=== PATIENT | male | born 1940 | race Caucasian/White ===

== ENCOUNTER 2018-02-09 11:16 | Outpatient (CLI) | payer MEDICARE, BC ==
[2018-02-09] VITALS (18 sets, daily range): BP systolic 117–134; BP diastolic 51–86
== END 2018-02-09 23:59 | disposition home or self-care (01) ==
LOC: CARD DIAG 11:16
PROVIDERS: ATTEND Physician Assistant
DX: R55 Syncope and collapse (principal); I11.0 Hypertensive heart disease with heart failure; I50.9 Heart failure, unspecified; E10.9 Type 1 diabetes mellitus without complications
CPT/HCPCS: 93660

== ENCOUNTER 2018-06-11 06:39 | Inpatient (IN) | payer MEDICARE, BC ==
[~2018-06-11] VITALS: Ht 591.1 cm; Wt 74.6 kg
[2018-06-11 07:04] LABS: BASOPHILS % (AUTO) 0.4 % (0-1); EOSINOPHILS # (AUTO) 0.2 X10'3 (0-0.9); EOSINOPHILS % (AUTO) 2.5 % (0-6); HEMATOCRIT 40.8 % (42.0-52.0); HEMOGLOBIN 13.8 g/dl (14.0-17.9); LYMPHOCYTES # (AUTO) 1.3 X10'3 (1.1-4.8); MEAN CORPUSCULAR HEMOGLOBIN 31.7 PG (27.0-31.0); MEAN CORPUSCULAR HGB CONC 33.7 % (33.0-36.5); MEAN CORPUSCULAR VOLUME 94.2 FL (78-98); MEAN PLATELET VOLUME 8.6 FL (7.4-10.4); MONOCYTES # (AUTO) 0.4 X10'3 (0-0.9); MONOCYTES % (AUTO) 6.2 % (2-12); NEUTROPHILS # (AUTO) 4.9 X10'3 (1.8-7.7); NEUTROPHILS % (AUTO) 71.9 % (42-75); PLATELET COUNT 205 X10'3 (140-440); RED BLOOD COUNT 4.33 X10'6 (4.70-6.10); RED CELL DISTRIBUTION WIDTH 13.2 % (11.5-14.5); WHITE BLOOD COUNT 6.9 X10'3 (4.5-11.0)
[2018-06-11 07:16] LABS: PARTIAL THROMBOPLASTIN TIME 26 SECONDS (22-32); PROTHROMBIN TIME 10.1 SECONDS (9.0-12.0)
[2018-06-11 07:18] LABS: ALANINE AMINOTRANSFERASE 34 U/L (12-78); ALBUMIN 3.3 G/DL (3.4-5.0); ALBUMIN/GLOBULIN RATIO 1.1 (1.1-1.5); ALKALINE PHOSPHATASE 103 IU/L (46-116); ANION GAP 10 (8-16); ASPARTATE AMINO TRANSFERASE 14 U/L (10-37); BILIRUBIN,TOTAL 0.6 MG/DL (0.1-1.0); BLOOD UREA NITROGEN 16 MG/DL (7-18); BUN/CREATININE RATIO 15.5 (5.4-32.0); CALCIUM 8.4 MG/DL (8.5-10.1); CHLORIDE 99 MMOL/L (99-107); CREATININE 1.03 MG/DL (0.60-1.10); GLUCOSE 216 MG/DL (70-104); POTASSIUM 4.3 MMOL/L (3.5-5.1); SODIUM 131 MMOL/L (135-145); TOTAL CARBON DIOXIDE 21.9 MMOL/L (24-32); TOTAL PROTEIN 6.4 G/DL (6.4-8.2); eGFR 70 ML/MIN
[2018-06-11] MEDS ORDERED: nitroGLYCERIN 0.4mg/hour patch TD ONE (07:20)
[2018-06-11] MEDS ORDERED: ATOR80TA PO (07:23)
[2018-06-11] MEDS ORDERED: CHOL10002 PO (07:23)
[2018-06-11] MEDS ORDERED: BIOT1POW2 PO (07:23)
[2018-06-11] MEDS ORDERED: POLY17PO10 PO (07:23)
[2018-06-11] MEDS ORDERED: INSU100I29 SQ (07:23)
[2018-06-11] MEDS ORDERED: FAMO40TA7 PO (07:23)
[2018-06-11] MEDS ORDERED: INSU100C4 SQ (07:23)
[2018-06-11] MEDS ORDERED: QUIN20TA18 PO (07:23)
[2018-06-11] MEDS ORDERED: ASPI-1265 PO (07:23)
[2018-06-11] MEDS ORDERED: [UNRECOGNIZED DRUG - OTHER] PO (07:23)
[2018-06-11] MEDS ORDERED: LEVO125T PO (07:23)
[2018-06-11] MEDS ORDERED: CLOP75TA33 PO (07:23)
[2018-06-11] MEDS ORDERED: MULT-38 PO (07:23)
[2018-06-11] MEDS ORDERED: normal saline 1000ml 1,000 ML IV SCH (08:48)
[2018-06-11] MEDS ORDERED: dextrose ORAL solution 15 GM/59 ML bottle PO PRN ×2 (08:50)
[2018-06-11] MEDS ORDERED: magnesium Cl slow-release 64mg tablet PO PRN (08:50)
[2018-06-11] MEDS ORDERED: MESSAGE TO PHARMACY PO ONE (08:50)
[2018-06-11] MEDS ORDERED: potassium Cl 20 mEq SR tablet PO PRN ×2 (08:50)
[2018-06-11] MEDS ORDERED: HYDROcodone/acetaminophen 5mg/325mg tablet PO PRN (08:50)
[2018-06-11] MEDS ORDERED: potassium Cl 40MEQ/NS 500ml 500 ML IV PRN ×2 (08:50)
[2018-06-11] MEDS ORDERED: dextrose 50%-water 50ml dispensing syringe IV PRN ×2 (08:50)
[2018-06-11] MEDS ORDERED: magnesium 4gm in 100ml NS 100 ML IV PRN (08:50)
[2018-06-11] MEDS ORDERED: morphine 4 MG/ML inj SYRINge IV PRN (08:50)
[2018-06-11] MEDS ORDERED: acetaminophen 325mg tablet PO PRN ×2 (08:50)
[2018-06-11] MEDS ORDERED: ondansetron/PF 4mg/2ml inj IV PRN (08:50)
[2018-06-11] MEDS ORDERED: magnesium 1gm/100ml D5W IVPB 100 ML IV PRN (08:50)
[2018-06-11] MEDS ORDERED: glucagon, human recombinant 1mg kit SUBCUT PRN (08:50)
[2018-06-11] MEDS ORDERED: diphenhydrAMINE 50 mg/ml inj IV PRN (08:50)
[2018-06-11] MEDS ORDERED: mag hydrox/Alum hydrox/simeth 30ml oral suspension PO PRN (08:50)
[2018-06-11] MEDS ORDERED: magnesium hydroxide 30ml (MOM) UD suspension PO PRN (08:50)
[2018-06-11] MEDS: aspirin 81mg tab.chew PO SCH (08:57)
[2018-06-11] MEDS: clopidogrel 75mg tablet PO SCH (08:57)
[2018-06-11] MEDS: levoTHYROXINE 125mcg tablet PO SCH (08:58)
[2018-06-11] MEDS: lisinopril 20mg tablet PO SCH (08:58)
[2018-06-11] MEDS: famotidine 20mg tablet PO SCH (09:00)
[2018-06-11] MEDS ORDERED: PANT40TA4 PO (09:24)
[2018-06-11] MEDS ORDERED: nitroGLYCERIN 0.4mg SUBLingual tab SL PRN (09:30)
[2018-06-11] MEDS: K and/or MAG REPLACEMENT MC SCH (09:32)
[2018-06-11 09:57] LABS: CLARITY,URINE CLEAR (Clear); COLOR,URINE YELLOW (Yellow); GLUCOSE, URINE 250 mg/dl (Neg); KETONES,URINE NEGATIVE (Neg); LEUKOCYTE ESTERASE ,URINE NEGATIVE (Neg); NITRITES, URINE NEGATIVE (Neg); OCCULT BLOOD,URINE NEGATIVE (Neg); PROTEIN,URINE NEGATIVE (Neg); UROBILINOGEN,URINE 0.2 E.U/dL (0.2-1.0)
[2018-06-11 10:04] LABS: UA COLLECTION TYPE CLN CATCH MIDSTREAM
[2018-06-11 10:37] VITALS: BP 125/55
[2018-06-11] MEDS: enoxaparin 40mg/0.4ml syringe SUBCUT SCH (12:44)
[2018-06-11] MEDS: multivitamins, therapeutics tablet PO SCH (12:44)
[2018-06-11] MEDS: isosorbide mononitrate 30mg tab.SR.24H PO SCH (12:44)
[2018-06-11] MEDS: vitamin D (cholecalciferol) 1,000 unit tablet PO SCH (12:44)
[2018-06-11] MEDS: insulin Lispro (HumaLOG) vial - multi-dose SQ SCH ×3 (13:40→20:55)
[2018-06-11 15:00] VITALS: BP 113/50
[2018-06-11 19:00] VITALS: BP 104/44
[2018-06-11] MEDS: carvedilol 6.25mg tablet PO SCH (20:52)
[2018-06-11] MEDS ORDERED: atorvastatin 20mg tablet PO SCH (21:00)
[2018-06-11] MEDS ORDERED: temazepam 15mg capsule PO PRN (21:00)
[2018-06-11] MEDS ORDERED: insulin glargine (Lantus) pen - multi-dose SQ SCH (21:00)
[2018-06-11 23:00] VITALS: BP 100/43
[2018-06-12 03:00] VITALS: BP 136/55
[2018-06-12] MEDS ORDERED: dextrose 5%-1/2 normal saline 1,000 ML IV SCH (05:35)
[2018-06-12 06:00] VITALS: BP 129/49
[2018-06-12 06:50] LABS: BASOPHILS % (AUTO) 0.3 % (0-1); EOSINOPHILS # (AUTO) 0.2 X10'3 (0-0.9); EOSINOPHILS % (AUTO) 2.5 % (0-6); HEMOGLOBIN 12.1 g/dl (14.0-17.9); LYMPHOCYTES # (AUTO) 1.3 X10'3 (1.1-4.8); LYMPHOCYTES % (AUTO) 17.9 % (21-51); MEAN CORPUSCULAR HEMOGLOBIN 31.7 PG (27.0-31.0); MEAN CORPUSCULAR HGB CONC 33.7 % (33.0-36.5); MONOCYTES # (AUTO) 0.5 X10'3 (0-0.9); MONOCYTES % (AUTO) 7.8 % (2-12); NEUTROPHILS % (AUTO) 71.5 % (42-75); PLATELET COUNT 188 X10'3 (140-440); RED BLOOD COUNT 3.83 X10'6 (4.70-6.10); RED CELL DISTRIBUTION WIDTH 13.3 % (11.5-14.5)
[2018-06-12 07:04] LABS: ALANINE AMINOTRANSFERASE 38 U/L (12-78); ALBUMIN/GLOBULIN RATIO 1.1 (1.1-1.5); ALKALINE PHOSPHATASE 85 IU/L (46-116); ANION GAP 9 (8-16); ASPARTATE AMINO TRANSFERASE 16 U/L (10-37); BILIRUBIN,TOTAL 0.7 MG/DL (0.1-1.0); BLOOD UREA NITROGEN 15 MG/DL (7-18); BUN/CREATININE RATIO 18.1 (5.4-32.0); CALCIUM 8.3 MG/DL (8.5-10.1); CHLORIDE 104 MMOL/L (99-107); CHOL/HDL RATIO 2.3 (0.00-4.99); CHOLESTEROL 108 MG/DL (0-200); CREATININE 0.83 MG/DL (0.60-1.10); GLUCOSE 123 MG/DL (70-104); HDL CHOLESTEROL 47 MG/DL (35-60); LDL CHOLESTEROL 57 MG/DL (50-100); MAGNESIUM 1.8 MG/DL (1.5-2.4); PHOSPHORUS 3.6 MG/DL (2.3-4.5); POTASSIUM 3.7 MMOL/L (3.5-5.1); SODIUM 136 MMOL/L (135-145); TOTAL CARBON DIOXIDE 22.6 MMOL/L (24-32); TOTAL PROTEIN 5.8 G/DL (6.4-8.2); TRIGLYCERIDES 51 MG/DL (20-135); eGFR 90 ML/MIN
[2018-06-12] MEDS ORDERED: vitamin B comp w/Vit. C tab 1 TAB TABLET PO SCH (08:00)
[2018-06-12] MEDS ORDERED: insulin glargine (Lantus) pen - multi-dose SQ SCH (08:00)
[2018-06-12] MEDS: K and/or MAG REPLACEMENT MC SCH (08:00)
[2018-06-12] MEDS: multivitamins, therapeutics tablet PO SCH (08:42)
[2018-06-12] MEDS: levoTHYROXINE 125mcg tablet PO SCH (08:42)
[2018-06-12] MEDS: lisinopril 20mg tablet PO SCH (08:42)
[2018-06-12] MEDS: aspirin 81mg tab.chew PO SCH (08:42)
[2018-06-12] MEDS: famotidine 20mg tablet PO SCH (08:42)
[2018-06-12] MEDS: carvedilol 6.25mg tablet PO SCH (08:42)
[2018-06-12] MEDS: clopidogrel 75mg tablet PO SCH (08:42)
[2018-06-12] MEDS: vitamin D (cholecalciferol) 1,000 unit tablet PO SCH (08:42)
[2018-06-12] MEDS: enoxaparin 40mg/0.4ml syringe SUBCUT SCH (08:42)
[2018-06-12] MEDS: isosorbide mononitrate 30mg tab.SR.24H PO SCH (08:42)
[2018-06-12 11:00] VITALS: BP 120/49
[2018-06-12] MEDS ORDERED: ISOS30TA6 PO (11:19)
[2018-06-12] MEDS ORDERED: NITR0.4T51 SL (11:19)
[2018-06-12] MEDS ORDERED: CARV6.253 PO (11:19)
[2018-06-12] MEDS: insulin Lispro (HumaLOG) vial - multi-dose SQ SCH (12:24)
[2018-06-13] MEDS ORDERED: VIT1TABL83 PO (13:47)
[2018-06-13] MEDS ORDERED: NITR0.4T48 SL (13:47)
[2018-06-13] MEDS ORDERED: ISOS30TA6 PO (13:47)
[2018-06-13] MEDS ORDERED: CARV-49 PO (13:47)
== END 2018-06-12 13:35 | disposition home or self-care (01) | DRG 303 ==
LOC: ER 06:39 → ED HOLD 08:48 → PCU 3S 10:00
PROVIDERS: ADMIT Family Medicine; ATTEND Family Medicine
DX: I25.110 Atherosclerotic heart disease of native coronary artery with unstable angina pectoris (principal); I50.30 Unspecified diastolic (congestive) heart failure; E78.5 Hyperlipidemia, unspecified; E03.9 Hypothyroidism, unspecified; E78.00 Pure hypercholesterolemia, unspecified; H54.8 Legal blindness, as defined in USA; E11.319 Type 2 diabetes mellitus with unspecified diabetic retinopathy without macular edema; E11.51 Type 2 diabetes mellitus with diabetic peripheral angiopathy without gangrene; I11.0 Hypertensive heart disease with heart failure; K21.9 Gastro-esophageal reflux disease without esophagitis; Z66 Do not resuscitate; I25.2 Old myocardial infarction; Z95.1 Presence of aortocoronary bypass graft; Z89.512 Acquired absence of left leg below knee; Z89.511 Acquired absence of right leg below knee; Z90.49 Acquired absence of other specified parts of digestive tract; Z88.1 Allergy status to other antibiotic agents; Z79.4 Long term (current) use of insulin; Z79.899 Other long term (current) drug therapy; Z79.82 Long term (current) use of aspirin; Z86.73 Personal history of transient ischemic attack (TIA), and cerebral infarction without residual deficits; Z87.891 Personal history of nicotine dependence; Z82.49 Family history of ischemic heart disease and other diseases of the circulatory system
CPT/HCPCS: 36415; 71045; 80053; 80061; 81003; 82948; 83036; 83735; 84100; 84443; 84484; 85025; 85610; 85730; 93005; 99285; J1650; J1815; J7030

== ENCOUNTER 2018-06-13 08:16 | Inpatient (IN) | payer MEDICARE, BC ==
[~2018-06-13] VITALS: Ht 172.7 cm; Wt 83.1 kg
[2018-06-13] VITALS (13 sets, daily range): BP systolic 130–145; BP diastolic 50–62
[~2018-06-13 08:16] MED LIST: ASPI-1265 PO; ATOR80TA PO; BIOT1POW2 PO; CARV6.253 PO; CHOL10002 PO; CLOP75TA33 PO; FAMO40TA7 PO; INSU100C4 SQ; INSU100I29 SQ; ISOS30TA6 PO; LEVO125T PO; MULT-38 PO; NITR0.4T51 SL; PANT40TA4 PO; POLY17PO10 PO; QUIN20TA18 PO; [UNRECOGNIZED DRUG - OTHER] PO
[2018-06-13 09:20] LABS: BASOPHILS % (AUTO) 0.3 % (0-1); EOSINOPHILS # (AUTO) 0.3 X10'3 (0-0.9); EOSINOPHILS % (AUTO) 2.9 % (0-6); HEMATOCRIT 33.4 % (42.0-52.0); HEMOGLOBIN 11.2 g/dl (14.0-17.9); LYMPHOCYTES % (AUTO) 10.1 % (21-51); MEAN CORPUSCULAR HEMOGLOBIN 31.4 PG (27.0-31.0); MEAN CORPUSCULAR HGB CONC 33.6 % (33.0-36.5); MEAN CORPUSCULAR VOLUME 93.4 FL (78-98); MEAN PLATELET VOLUME 8.8 FL (7.4-10.4); MONOCYTES # (AUTO) 0.4 X10'3 (0-0.9); MONOCYTES % (AUTO) 4.5 % (2-12); NEUTROPHILS # (AUTO) 7.8 X10'3 (1.8-7.7); NEUTROPHILS % (AUTO) 82.2 % (42-75); PLATELET COUNT 179 X10'3 (140-440); RED BLOOD COUNT 3.58 X10'6 (4.70-6.10); RED CELL DISTRIBUTION WIDTH 13.8 % (11.5-14.5); WHITE BLOOD COUNT 9.5 X10'3 (4.5-11.0)
[2018-06-13 09:30] LABS: PARTIAL THROMBOPLASTIN TIME 25 SECONDS (22-32)
[2018-06-13 09:36] LABS: ALANINE AMINOTRANSFERASE 42 U/L (12-78); ALBUMIN 2.9 G/DL (3.4-5.0); ALKALINE PHOSPHATASE 102 IU/L (46-116); ANION GAP 6 (8-16); ASPARTATE AMINO TRANSFERASE 24 U/L (10-37); BILIRUBIN,TOTAL 0.8 MG/DL (0.1-1.0); BLOOD UREA NITROGEN 15 MG/DL (7-18); BUN/CREATININE RATIO 15.6 (5.4-32.0); CALCIUM 8.2 MG/DL (8.5-10.1); CHLORIDE 99 MMOL/L (99-107); CREATININE 0.96 MG/DL (0.60-1.10); GLUCOSE 261 MG/DL (70-104); POTASSIUM 4.4 MMOL/L (3.5-5.1); SODIUM 128 MMOL/L (135-145); TOTAL CARBON DIOXIDE 23.1 MMOL/L (24-32); TOTAL PROTEIN 5.8 G/DL (6.4-8.2); eGFR 76 ML/MIN
[2018-06-13] MEDS ORDERED: normal saline 1000ml 1,000 ML IV SCH (13:18)
[2018-06-13] MEDS ORDERED: potassium Cl 40MEQ/NS 500ml 500 ML IV PRN ×2 (13:20)
[2018-06-13] MEDS ORDERED: magnesium Cl slow-release 64mg tablet PO PRN (13:20)
[2018-06-13] MEDS ORDERED: magnesium hydroxide 30ml (MOM) UD suspension PO PRN (13:20)
[2018-06-13] MEDS ORDERED: HYDROcodone/acetaminophen 5mg/325mg tablet PO PRN (13:20)
[2018-06-13] MEDS ORDERED: ondansetron/PF 4mg/2ml inj IV PRN (13:20)
[2018-06-13] MEDS ORDERED: dextrose 50%-water 50ml dispensing syringe IV PRN ×2 (13:20)
[2018-06-13] MEDS ORDERED: magnesium 1gm/100ml D5W IVPB 100 ML IV PRN (13:20)
[2018-06-13] MEDS ORDERED: K and/or MAG REPLACEMENT MC SCH (13:20)
[2018-06-13] MEDS ORDERED: potassium Cl 20 mEq SR tablet PO PRN ×2 (13:20)
[2018-06-13] MEDS ORDERED: MESSAGE TO PHARMACY PO ONE (13:20)
[2018-06-13] MEDS ORDERED: diphenhydrAMINE 25mg capsule PO PRN (13:20)
[2018-06-13] MEDS ORDERED: dextrose ORAL solution 15 GM/59 ML bottle PO PRN ×2 (13:20)
[2018-06-13] MEDS ORDERED: bisacodyl 10mg suppository rectal RC PRN (13:20)
[2018-06-13] MEDS ORDERED: glucagon, human recombinant 1mg kit SUBCUT PRN (13:20)
[2018-06-13] MEDS ORDERED: mag hydrox/Alum hydrox/simeth 30ml oral suspension PO PRN (13:20)
[2018-06-13] MEDS ORDERED: acetaminophen 325mg tablet PO PRN ×2 (13:20)
[2018-06-13] MEDS ORDERED: diphenhydrAMINE 50 mg/ml inj IV PRN (13:20)
[2018-06-13] MEDS ORDERED: magnesium 4gm in 100ml NS 100 ML IV PRN (13:20)
[2018-06-13] MEDS ORDERED: morphine 4 MG/ML inj SYRINge IV PRN (13:20)
[2018-06-13] MEDS ORDERED: VIT1TABL83 PO (13:47)
[2018-06-13] MEDS ORDERED: NITR0.4T48 SL (13:47)
[2018-06-13] MEDS ORDERED: ISOS30TA6 PO (13:47)
[2018-06-13] MEDS ORDERED: CARV-49 PO (13:47)
[2018-06-13] MEDS ORDERED: iohexol 350MG/ML 100ml bottle IV ONE ×2 (16:10→17:00)
[2018-06-13] MEDS ORDERED: LIDOcaine 1% 30ml preserv. free vial ONE (16:10)
[2018-06-13] MEDS ORDERED: iohexol 350 MG/ML 50ML vial IV ONE (16:51)
[2018-06-13] MEDS ORDERED: carvedilol 6.25mg tablet PO SCH (20:00)
[2018-06-13] MEDS: heparin, porcine 5000 units/ml vial SQ SCH (20:00)
[2018-06-13] MEDS ORDERED: atorvastatin 20mg tablet PO SCH (21:00)
[2018-06-13] MEDS ORDERED: pantoprazole 40mg Tablet.DR PO SCH (21:00)
[2018-06-13] MEDS ORDERED: insulin glargine (Lantus) pen - multi-dose SQ SCH (21:00)
[2018-06-14 03:00] VITALS: BP 94/43
[2018-06-14 06:25] LABS: BASOPHILS % (AUTO) 0.3 % (0-1); EOSINOPHILS # (AUTO) 0.2 X10'3 (0-0.9); EOSINOPHILS % (AUTO) 2.8 % (0-6); HEMATOCRIT 35.6 % (42.0-52.0); HEMOGLOBIN 12.1 g/dl (14.0-17.9); LYMPHOCYTES # (AUTO) 1.1 X10'3 (1.1-4.8); LYMPHOCYTES % (AUTO) 17.3 % (21-51); MEAN CORPUSCULAR HEMOGLOBIN 31.5 PG (27.0-31.0); MEAN CORPUSCULAR VOLUME 92.5 FL (78-98); MEAN PLATELET VOLUME 8.9 FL (7.4-10.4); MONOCYTES # (AUTO) 0.5 X10'3 (0-0.9); MONOCYTES % (AUTO) 7.7 % (2-12); NEUTROPHILS # (AUTO) 4.7 X10'3 (1.8-7.7); NEUTROPHILS % (AUTO) 71.9 % (42-75); PLATELET COUNT 191 X10'3 (140-440); RED BLOOD COUNT 3.85 X10'6 (4.70-6.10); RED CELL DISTRIBUTION WIDTH 13.9 % (11.5-14.5); WHITE BLOOD COUNT 6.5 X10'3 (4.5-11.0)
[2018-06-14 06:38] LABS: ALANINE AMINOTRANSFERASE 49 U/L (12-78); ALKALINE PHOSPHATASE 113 IU/L (46-116); ANION GAP 7 (8-16); ASPARTATE AMINO TRANSFERASE 33 U/L (10-37); BILIRUBIN,TOTAL 0.6 MG/DL (0.1-1.0); BLOOD UREA NITROGEN 15 MG/DL (7-18); CALCIUM 8.4 MG/DL (8.5-10.1); CHLORIDE 102 MMOL/L (99-107); CREATININE 0.88 MG/DL (0.60-1.10); GLUCOSE 227 MG/DL (70-104); MAGNESIUM 1.9 MG/DL (1.5-2.4); SODIUM 134 MMOL/L (135-145); TOTAL CARBON DIOXIDE 24.8 MMOL/L (24-32); TOTAL PROTEIN 6.1 G/DL (6.4-8.2); eGFR 84 ML/MIN
[2018-06-14] MEDS: insulin glargine (Lantus) pen - multi-dose SQ SCH ×2 (06:47→07:59)
[2018-06-14 07:06] VITALS: BP 122/51
[2018-06-14] MEDS: insulin Lispro (HumaLOG) vial - multi-dose SQ SCH ×2 (07:47→12:48)
[2018-06-14] MEDS: heparin, porcine 5000 units/ml vial SQ SCH (07:59)
[2018-06-14] MEDS ORDERED: multivitamins, therapeutics tablet PO SCH (08:00)
[2018-06-14] MEDS ORDERED: BIOTIN 1 GM PO SCH (08:00)
[2018-06-14] MEDS ORDERED: vitamin B comp w/Vit. C tab 1 TAB TABLET PO SCH (08:00)
[2018-06-14] MEDS ORDERED: levoTHYROXINE 125mcg tablet PO SCH (08:00)
[2018-06-14] MEDS ORDERED: aspirin 81mg tab.chew PO SCH (08:00)
[2018-06-14] MEDS ORDERED: vitamin D (cholecalciferol) 1,000 unit tablet PO SCH (08:00)
[2018-06-14] MEDS ORDERED: ranolazine 500mg SR tablet (Q12H) PO SCH (08:00)
[2018-06-14] MEDS ORDERED: carVEDilol 3.125mg tablet PO SCH (08:00)
[2018-06-14] MEDS ORDERED: clopidogrel 75mg tablet PO SCH (08:00)
[2018-06-14] MEDS ORDERED: isosorbide mononitrate 30mg tab.SR.24H PO SCH (08:00)
[2018-06-14] MEDS ORDERED: famotidine 20mg tablet PO SCH (08:00)
[2018-06-14] MEDS ORDERED: lisinopril 20mg tablet PO SCH (08:00)
[2018-06-14] MEDS ORDERED: RANO500T3 PO (10:37)
[2018-06-14] MEDS ORDERED: NITR0.3T SL (10:37)
[2018-06-14] MEDS ORDERED: COR3.125T PO (10:37)
[2018-06-14 11:00] VITALS: BP 109/44
== END 2018-06-14 13:20 | disposition home or self-care (01) | DRG 287 ==
LOC: ER 08:18 → ED HOLD 13:18 → PCU 3S 15:02
PROVIDERS: ADMIT Family Medicine; ATTEND Family Medicine
PROC: 4A023N7 Measurement of Cardiac Sampling and Pressure, Left Heart, Percutaneous Approach (ICD-10-PCS; principal; 2018-06-13)
PROC: B2111ZZ Fluoroscopy of Multiple Coronary Arteries using Low Osmolar Contrast (ICD-10-PCS; 2018-06-13)
PROC: B2131ZZ Fluoroscopy of Multiple Coronary Artery Bypass Grafts using Low Osmolar Contrast (ICD-10-PCS; 2018-06-13)
PROC: B2151ZZ Fluoroscopy of Left Heart using Low Osmolar Contrast (ICD-10-PCS; 2018-06-13)
PROC: 4A10X4Z Monitoring of Central Nervous Electrical Activity, External Approach (ICD-10-PCS; 2018-06-14)
DX: I25.110 Atherosclerotic heart disease of native coronary artery with unstable angina pectoris (principal); I50.30 Unspecified diastolic (congestive) heart failure; H54.8 Legal blindness, as defined in USA; T44.7X5A Adverse effect of beta-adrenoreceptor antagonists, initial encounter; E03.9 Hypothyroidism, unspecified; E11.319 Type 2 diabetes mellitus with unspecified diabetic retinopathy without macular edema; E11.51 Type 2 diabetes mellitus with diabetic peripheral angiopathy without gangrene; E78.00 Pure hypercholesterolemia, unspecified; E78.5 Hyperlipidemia, unspecified; I11.0 Hypertensive heart disease with heart failure; K21.9 Gastro-esophageal reflux disease without esophagitis; Z66 Do not resuscitate; R56.9 Unspecified convulsions; R55 Syncope and collapse; Z95.1 Presence of aortocoronary bypass graft; Z89.512 Acquired absence of left leg below knee; Z90.49 Acquired absence of other specified parts of digestive tract; Z89.511 Acquired absence of right leg below knee; I25.2 Old myocardial infarction; Z88.1 Allergy status to other antibiotic agents; Z79.899 Other long term (current) drug therapy; Z79.02 Long term (current) use of antithrombotics/antiplatelets; Z79.82 Long term (current) use of aspirin; Z87.891 Personal history of nicotine dependence; Z86.73 Personal history of transient ischemic attack (TIA), and cerebral infarction without residual deficits; Z82.49 Family history of ischemic heart disease and other diseases of the circulatory system
CPT/HCPCS: 36415; 70450; 71045; 80053; 82948; 83735; 84484; 85025; 85610; 85730; 87070; 93005; 93459; 95816; 99285; A4620; A6257; C1769; J1644; J1815; J3490; J7030; Q9967

== ENCOUNTER 2018-07-13 14:03 | Inpatient (IN) | payer MEDICARE, BC ==
[~2018-07-13] VITALS: Ht 172.7 cm; Wt 77.5 kg
[~2018-07-13 14:03] MED LIST changes: -CARV6.253 PO; +COR3.125T PO; +NITR0.3T SL; -NITR0.4T51 SL; +RANO500T3 PO; +VIT1TABL83 PO; -[UNRECOGNIZED DRUG - OTHER] PO
[2018-07-13 14:50] LABS: BASOPHILS % (AUTO) 0.3 % (0-1); EOSINOPHILS # (AUTO) 0.1 X10'3 (0-0.9); EOSINOPHILS % (AUTO) 2.3 % (0-6); HEMATOCRIT 38.4 % (42.0-52.0); HEMOGLOBIN 13.4 g/dl (14.0-17.9); LYMPHOCYTES # (AUTO) 0.9 X10'3 (1.1-4.8); LYMPHOCYTES % (AUTO) 15.1 % (21-51); MEAN CORPUSCULAR HEMOGLOBIN 32.2 PG (27.0-31.0); MEAN CORPUSCULAR HGB CONC 34.8 % (33.0-36.5); MEAN CORPUSCULAR VOLUME 92.6 FL (78-98); MEAN PLATELET VOLUME 7.8 FL (7.4-10.4); MONOCYTES # (AUTO) 0.4 X10'3 (0-0.9); MONOCYTES % (AUTO) 6.8 % (2-12); NEUTROPHILS # (AUTO) 4.6 X10'3 (1.8-7.7); NEUTROPHILS % (AUTO) 75.5 % (42-75); PLATELET COUNT 198 X10'3 (140-440); RED BLOOD COUNT 4.15 X10'6 (4.70-6.10); RED CELL DISTRIBUTION WIDTH 14.4 % (11.5-14.5); WHITE BLOOD COUNT 6.1 X10'3 (4.5-11.0)
[2018-07-13 15:05] LABS: ALANINE AMINOTRANSFERASE 28 U/L (12-78); ALBUMIN 3.4 G/DL (3.4-5.0); ALBUMIN/GLOBULIN RATIO 1.1 (1.1-1.5); ALKALINE PHOSPHATASE 85 IU/L (46-116); ANION GAP 10 (8-16); ASPARTATE AMINO TRANSFERASE 17 U/L (10-37); BILIRUBIN,TOTAL 0.5 MG/DL (0.1-1.0); BLOOD UREA NITROGEN 15 MG/DL (7-18); BUN/CREATININE RATIO 11.7 (5.4-32.0); CALCIUM 8.5 MG/DL (8.5-10.1); CHLORIDE 93 MMOL/L (99-107); CREATININE 1.28 MG/DL (0.60-1.10); GLUCOSE 168 MG/DL (70-104); POTASSIUM 4.9 MMOL/L (3.5-5.1); SODIUM 126 MMOL/L (135-145); TOTAL CARBON DIOXIDE 23.2 MMOL/L (24-32); TOTAL PROTEIN 6.4 G/DL (6.4-8.2); eGFR 55 ML/MIN
[2018-07-13 15:12] LABS: MAGNESIUM 2.1 MG/DL (1.5-2.4)
[2018-07-13] MEDS ORDERED: HYDROcodone/acetaminophen 5mg/325mg tablet PO PRN (15:20)
[2018-07-13] MEDS: normal saline 1000ml 1,000 ML IV SCH (15:20)
[2018-07-13] MEDS ORDERED: magnesium hydroxide 30ml (MOM) UD suspension PO PRN (15:20)
[2018-07-13] MEDS ORDERED: acetaminophen 325mg tablet PO PRN ×2 (15:20)
[2018-07-13] MEDS ORDERED: mag hydrox/Alum hydrox/simeth 30ml oral suspension PO PRN (15:20)
[2018-07-13] MEDS ORDERED: ondansetron/PF 4mg/2ml inj IV PRN (15:20)
[2018-07-13 17:15] VITALS: BP 160/55
[2018-07-13] MEDS ORDERED: dextrose 50%-water 50ml dispensing syringe IV PRN ×2 (17:55)
[2018-07-13] MEDS ORDERED: glucagon, human recombinant 1mg kit SUBCUT PRN (17:55)
[2018-07-13] MEDS ORDERED: MESSAGE TO PHARMACY PO ONE (17:55)
[2018-07-13] MEDS ORDERED: dextrose ORAL solution 15 GM/59 ML bottle PO PRN ×2 (17:55)
[2018-07-13 18:00] VITALS: BP 176/71
[2018-07-13] MEDS ORDERED: RANO10003 PO (18:03)
[2018-07-13] MEDS ORDERED: CARV3.122 PO (18:10)
[2018-07-13] MEDS ORDERED: MELA3TAB PO (18:10)
[2018-07-13] MEDS: insulin Lispro (HumaLOG) vial - multi-dose SQ SCH ×2 (19:32→22:07)
[2018-07-13] MEDS: heparin, porcine 5000 units/ml vial SQ SCH (19:34)
[2018-07-13 20:00] VITALS: BP_SYST 140; BP_SYST 153; BP_DIAS 56; BP_DIAS 57
[2018-07-13] MEDS ORDERED: levetiracetam 250mg tablet PO SCH (20:00)
[2018-07-13] MEDS ORDERED: insulin glargine (Lantus) pen - multi-dose SQ SCH (21:00)
[2018-07-13 22:00] VITALS: BP 130/54
[2018-07-14] VITALS (8 sets, daily range): BP systolic 134–161; BP diastolic 39–79
[2018-07-14] MEDS: normal saline 1000ml 1,000 ML IV SCH ×3 (01:20→20:49)
[2018-07-14 03:01] LABS: BASOPHILS % (AUTO) 0.2 % (0-1); EOSINOPHILS # (AUTO) 0.1 X10'3 (0-0.9); EOSINOPHILS % (AUTO) 1.5 % (0-6); HEMATOCRIT 39.2 % (42.0-52.0); HEMOGLOBIN 13.5 g/dl (14.0-17.9); LYMPHOCYTES # (AUTO) 1.1 X10'3 (1.1-4.8); LYMPHOCYTES % (AUTO) 22.3 % (21-51); MEAN CORPUSCULAR HEMOGLOBIN 32.1 PG (27.0-31.0); MEAN CORPUSCULAR HGB CONC 34.4 % (33.0-36.5); MEAN CORPUSCULAR VOLUME 93.3 FL (78-98); MEAN PLATELET VOLUME 7.8 FL (7.4-10.4); MONOCYTES # (AUTO) 0.5 X10'3 (0-0.9); MONOCYTES % (AUTO) 9.7 % (2-12); NEUTROPHILS # (AUTO) 3.3 X10'3 (1.8-7.7); NEUTROPHILS % (AUTO) 66.3 % (42-75); PLATELET COUNT 207 X10'3 (140-440); RED CELL DISTRIBUTION WIDTH 14.4 % (11.5-14.5)
[2018-07-14 03:17] LABS: ALBUMIN 3.3 G/DL (3.4-5.0); ANION GAP 10 (8-16); BLOOD UREA NITROGEN 16 MG/DL (7-18); BUN/CREATININE RATIO 15.2 (5.4-32.0); CALCIUM 8.8 MG/DL (8.5-10.1); CHLORIDE 100 MMOL/L (99-107); CREATININE 1.05 MG/DL (0.60-1.10); GLUCOSE 98 MG/DL (70-104); SODIUM 132 MMOL/L (135-145); TOTAL CARBON DIOXIDE 22.5 MMOL/L (24-32); eGFR 69 ML/MIN
[2018-07-14] MEDS ORDERED: insulin glargine (Lantus) pen - multi-dose SQ SCH (06:00)
[2018-07-14] MEDS: insulin glargine (Lantus) pen - multi-dose SQ SCH (06:48)
[2018-07-14] MEDS: heparin, porcine 5000 units/ml vial SQ SCH ×2 (07:22→19:26)
[2018-07-14] MEDS: insulin Lispro (HumaLOG) vial - multi-dose SQ SCH ×4 (08:41→20:35)
[2018-07-15] MEDS: normal saline 1000ml 1,000 ML IV SCH (00:25)
[2018-07-15 02:00] VITALS: BP 135/53
[2018-07-15 06:00] VITALS: BP 159/51
[2018-07-15 07:13] LABS: BASOPHILS % (AUTO) 0.5 % (0-1); EOSINOPHILS # (AUTO) 0.2 X10'3 (0-0.9); EOSINOPHILS % (AUTO) 3.9 % (0-6); HEMATOCRIT 37.3 % (42.0-52.0); HEMOGLOBIN 12.9 g/dl (14.0-17.9); LYMPHOCYTES # (AUTO) 1.5 X10'3 (1.1-4.8); LYMPHOCYTES % (AUTO) 31.3 % (21-51); MEAN CORPUSCULAR HEMOGLOBIN 32.7 PG (27.0-31.0); MEAN CORPUSCULAR HGB CONC 34.6 % (33.0-36.5); MEAN CORPUSCULAR VOLUME 94.5 FL (78-98); MEAN PLATELET VOLUME 8.1 FL (7.4-10.4); MONOCYTES # (AUTO) 0.4 X10'3 (0-0.9); MONOCYTES % (AUTO) 8.4 % (2-12); NEUTROPHILS # (AUTO) 2.7 X10'3 (1.8-7.7); NEUTROPHILS % (AUTO) 55.9 % (42-75); PLATELET COUNT 204 X10'3 (140-440); RED BLOOD COUNT 3.94 X10'6 (4.70-6.10); RED CELL DISTRIBUTION WIDTH 14.9 % (11.5-14.5); WHITE BLOOD COUNT 4.8 X10'3 (4.5-11.0)
[2018-07-15] MEDS: insulin glargine (Lantus) pen - multi-dose SQ SCH (07:17)
[2018-07-15] MEDS: heparin, porcine 5000 units/ml vial SQ SCH (07:20)
[2018-07-15 07:38] LABS: GLUCOSE 129 MG/DL (70-104); SODIUM 136 MMOL/L (135-145)
[2018-07-15 07:39] LABS: ANION GAP 10 (8-16); BLOOD UREA NITROGEN 14 MG/DL (7-18); BUN/CREATININE RATIO 15.9 (5.4-32.0); CALCIUM 8.9 MG/DL (8.5-10.1); CHLORIDE 104 MMOL/L (99-107); CREATININE 0.88 MG/DL (0.60-1.10); eGFR 84 ML/MIN
[2018-07-15 07:50] LABS: POTASSIUM 4.3 MMOL/L (3.5-5.1)
[2018-07-15] MEDS: insulin Lispro (HumaLOG) vial - multi-dose SQ SCH (09:22)
== END 2018-07-15 12:10 | disposition home or self-care (01) | DRG 683 ==
LOC: ER 14:03 → ED HOLD 15:20 → PCU 3S 17:15
PROVIDERS: ADMIT Internal Medicine; ATTEND Internal Medicine
DX: N17.9 Acute kidney failure, unspecified (principal); I50.30 Unspecified diastolic (congestive) heart failure; R55 Syncope and collapse; I25.119 Atherosclerotic heart disease of native coronary artery with unspecified angina pectoris; E03.9 Hypothyroidism, unspecified; E78.00 Pure hypercholesterolemia, unspecified; R09.02 Hypoxemia; R00.1 Bradycardia, unspecified; E78.5 Hyperlipidemia, unspecified; E11.319 Type 2 diabetes mellitus with unspecified diabetic retinopathy without macular edema; E11.51 Type 2 diabetes mellitus with diabetic peripheral angiopathy without gangrene; H54.8 Legal blindness, as defined in USA; I11.0 Hypertensive heart disease with heart failure; I44.0 Atrioventricular block, first degree; K21.9 Gastro-esophageal reflux disease without esophagitis; Z79.02 Long term (current) use of antithrombotics/antiplatelets; I25.2 Old myocardial infarction; Z79.4 Long term (current) use of insulin; Z79.82 Long term (current) use of aspirin; Z82.49 Family history of ischemic heart disease and other diseases of the circulatory system; Z86.73 Personal history of transient ischemic attack (TIA), and cerebral infarction without residual deficits; Z87.891 Personal history of nicotine dependence; Z89.511 Acquired absence of right leg below knee; Z89.512 Acquired absence of left leg below knee; Z90.49 Acquired absence of other specified parts of digestive tract; Z95.1 Presence of aortocoronary bypass graft; Z88.1 Allergy status to other antibiotic agents; Z79.899 Other long term (current) drug therapy
CPT/HCPCS: 36415; 71045; 80048; 80053; 82948; 83735; 83880; 84484; 85025; 87070; 93005; 99285; A6213; J1644; J1815; J7030

== ENCOUNTER 2019-04-20 17:18 | Inpatient (IN) | payer MEDICARE, BC ==
[~2019-04-20] VITALS: Ht 172.7 cm; Wt 83.2 kg
[~2019-04-20 17:18] MED LIST changes: -ATOR80TA PO; -BIOT1POW2 PO; -COR3.125T PO; +MELA3TAB PO; +RANO10003 PO; -RANO500T3 PO
[2019-04-20 18:41] LABS: BASOPHILS % (AUTO) 0.5 % (0-1); EOSINOPHILS # (AUTO) 0.1 X10'3 (0-0.9); EOSINOPHILS % (AUTO) 1.8 % (0-6); HEMATOCRIT 42.2 % (42.0-52.0); HEMOGLOBIN 13.8 g/dl (14.0-17.9); LYMPHOCYTES # (AUTO) 1.2 X10'3 (1.1-4.8); LYMPHOCYTES % (AUTO) 15.9 % (21-51); MEAN CORPUSCULAR HEMOGLOBIN 29.3 PG (27.0-31.0); MEAN CORPUSCULAR HGB CONC 32.7 g/dL (33.0-36.5); MEAN CORPUSCULAR VOLUME 89.4 FL (78-98); MEAN PLATELET VOLUME 8.7 FL (7.4-10.4); MONOCYTES # (AUTO) 0.5 X10'3 (0-0.9); MONOCYTES % (AUTO) 6.7 % (2-12); NEUTROPHILS # (AUTO) 5.5 X10'3 (1.8-7.7); NEUTROPHILS % (AUTO) 75.1 % (42-75); PLATELET COUNT 214 X10'3 (140-440); RED BLOOD COUNT 4.72 X10'6 (4.70-6.10); WHITE BLOOD COUNT 7.3 X10'3 (4.5-11.0)
[2019-04-20 18:50] LABS: ALANINE AMINOTRANSFERASE 35 U/L (12-78); ALBUMIN 3.4 G/DL (3.4-5.0); ALKALINE PHOSPHATASE 81 IU/L (46-116); ANION GAP 9 (8-16); ASPARTATE AMINO TRANSFERASE 20 U/L (10-37); BILIRUBIN,TOTAL 0.3 MG/DL (0.1-1.0); BLOOD UREA NITROGEN 15 MG/DL (7-18); CALCIUM 8.6 MG/DL (8.5-10.1); CHLORIDE 99 MMOL/L (99-107); CREATININE 0.88 MG/DL (0.60-1.10); GLUCOSE 216 MG/DL (70-104); POTASSIUM 4.6 MMOL/L (3.5-5.1); SODIUM 132 MMOL/L (135-145); TOTAL CARBON DIOXIDE 23.6 MMOL/L (24-32); TOTAL PROTEIN 6.8 G/DL (6.4-8.2); eGFR 84 ML/MIN
[2019-04-20 20:49] LABS: CLARITY,URINE CLEAR (Clear); COLOR,URINE YELLOW (Yellow); GLUCOSE, URINE 100 mg/dl (Neg); KETONES,URINE NEGATIVE (Neg); LEUKOCYTE ESTERASE ,URINE NEGATIVE (Neg); NITRITES, URINE NEGATIVE (Neg); OCCULT BLOOD,URINE NEGATIVE (Neg); PROTEIN,URINE NEGATIVE (Neg); UROBILINOGEN,URINE 0.2 E.U/dL (0.2-1.0)
[2019-04-20 20:55] LABS: UA COLLECTION TYPE VOIDED
[2019-04-20] MEDS ORDERED: heparin 10,000 units/1 ML INJ IV ONE (21:05)
[2019-04-20] MEDS ORDERED: heparin 10,000 units/1 ML INJ IV PRN (21:05)
[2019-04-20] MEDS ORDERED: iohexol 350MG/ML 100ml bottle IV ONE (21:08)
[2019-04-20 21:34] LABS: D-DIMER 0.67 MG/L FEU (0-0.50); PARTIAL THROMBOPLASTIN TIME 27 SECONDS (22-32)
[2019-04-20] MEDS: heparin 25,000 UNIT/250ml bag 250 ML IV SCH (22:44)
[2019-04-20] MEDS ORDERED: furosemide 10 MG/1 ML 10ml inj IV ONE (23:10)
[2019-04-20] MEDS ORDERED: mag hydrox/Alum hydrox/simeth 30ml oral suspension PO PRN (23:45)
[2019-04-20] MEDS ORDERED: acetaminophen 325mg tablet PO PRN (23:45)
[2019-04-20] MEDS ORDERED: ondansetron/PF 4mg/2ml inj IV PRN (23:45)
[2019-04-20] MEDS ORDERED: magnesium hydroxide 30ml (MOM) UD suspension PO PRN (23:45)
--- NOTE | 2019-04-21 00:25 | NUR ---
Patient in room PCU 3028. I have received report from Rita STARKEY and had the opportunity to ask questions and assume patient care.
--- NOTE | 2019-04-21 00:35 | NUR ---
Pt arrived to room 3028B from the ER via gurney, all belongings on person and spouse by side. Patient able to assist in sliding over to new bed. Patient is legally blind, oriented to call light, urinal, room set up and plan of care. All questions answered. 2 RN skin check done. Tele monitor put on and vital signs stable. Chest pain free at the moment. Will continue to monitor. Addendum: 04/21/19 at 0127 by Tanika Weahters RN Heparin gtt infusing at 10mls/hr
[2019-04-21 00:40] VITALS: BP 123/55
[2019-04-21 02:09] LABS: BASOPHILS % (AUTO) 0.7 % (0-1); EOSINOPHILS # (AUTO) 0.1 X10'3 (0-0.9); HEMATOCRIT 39.9 % (42.0-52.0); HEMOGLOBIN 13.4 g/dl (14.0-17.9); LYMPHOCYTES # (AUTO) 1.3 X10'3 (1.1-4.8); LYMPHOCYTES % (AUTO) 17.5 % (21-51); MEAN CORPUSCULAR HEMOGLOBIN 29.9 PG (27.0-31.0); MEAN CORPUSCULAR HGB CONC 33.7 g/dL (33.0-36.5); MEAN CORPUSCULAR VOLUME 88.8 FL (78-98); MEAN PLATELET VOLUME 8.7 FL (7.4-10.4); MONOCYTES # (AUTO) 0.5 X10'3 (0-0.9); MONOCYTES % (AUTO) 6.4 % (2-12); NEUTROPHILS # (AUTO) 5.3 X10'3 (1.8-7.7); NEUTROPHILS % (AUTO) 73.4 % (42-75); PLATELET COUNT 201 X10'3 (140-440); RED BLOOD COUNT 4.49 X10'6 (4.70-6.10); RED CELL DISTRIBUTION WIDTH 16.2 % (11.5-14.5); WHITE BLOOD COUNT 7.2 X10'3 (4.5-11.0)
[2019-04-21 02:20] LABS: ALANINE AMINOTRANSFERASE 37 U/L (12-78); ALBUMIN 3.4 G/DL (3.4-5.0); ALKALINE PHOSPHATASE 78 IU/L (46-116); ANION GAP 6 (8-16); ASPARTATE AMINO TRANSFERASE 23 U/L (10-37); BILIRUBIN,TOTAL 0.4 MG/DL (0.1-1.0); BLOOD UREA NITROGEN 16 MG/DL (7-18); CALCIUM 8.4 MG/DL (8.5-10.1); CHLORIDE 100 MMOL/L (99-107); CREATININE 0.89 MG/DL (0.60-1.10); GLUCOSE 220 MG/DL (70-104); POTASSIUM 3.8 MMOL/L (3.5-5.1); SODIUM 133 MMOL/L (135-145); TOTAL CARBON DIOXIDE 26.9 MMOL/L (24-32); TOTAL PROTEIN 6.7 G/DL (6.4-8.2); eGFR 83 ML/MIN
[2019-04-21 06:00] VITALS: BP 130/65
--- NOTE | 2019-04-21 06:00 | NUR ---
Patient in room PCU 3028. I have received report from LALITO Sagastume and had the opportunity to ask questions and assume patient care.
--- NOTE | 2019-04-21 06:05 | NUR ---
Problems reprioritized. Patient report given, questions answered & plan of care reviewed with Leslie STARKEY.
[2019-04-21] MEDS: heparin 25,000 UNIT/250ml bag 250 ML IV SCH (06:27)
[2019-04-21] MEDS: furosemide 10 MG/1 ML 10ml inj IV SCH ×2 (08:15→19:47)
--- NOTE | 2019-04-21 09:17 | NUR ---
PAGER ID: [phone] MESSAGE: [id number] Rachel Srinivasan. Pt is type 1 diabetic, no insulin orders. Per Ivelisse pt to self-manage. Can I put in orders for Humalog and Lantus per pt report? Leslie [id number]
--- NOTE | 2019-04-21 09:27 | NUR ---
3028B Alethae Srinivasan Please address med req, pt needs insulin stat, lantus and humalog per pt. ThanksAlma Nelson [id number] Addendum: 04/21/19 at 927 by Hayley Ariza RN sent to PAGER ID: [phone] Addendum: 04/21/19 at 951 by Hayley Ariza RN [phone] Med rec addressed by patient. Addendum: 04/21/19 at 52 by Hayley Ariza RN med req addressed by MD, not patient.
[2019-04-21] MEDS ORDERED: MESSAGE TO PHARMACY PO ONE (09:40)
[2019-04-21] MEDS ORDERED: dextrose ORAL solution 15 GM/59 ML bottle PO PRN ×2 (09:40)
[2019-04-21] MEDS ORDERED: potassium CL 10mEq/100ml bag 100 ML IV PRN (09:40)
[2019-04-21] MEDS ORDERED: glucagon, human recombinant 1mg kit SUBCUT PRN (09:40)
[2019-04-21] MEDS ORDERED: potassium Cl 20 mEq SR tablet PO PRN ×2 (09:40)
[2019-04-21] MEDS ORDERED: magnesium 4gm in 100ml NS 100 ML IV PRN (09:40)
[2019-04-21] MEDS ORDERED: dextrose 50%-water 50ml dispensing syringe IV PRN ×2 (09:40)
[2019-04-21] MEDS ORDERED: magnesium Cl slow-release 64mg tablet PO PRN (09:40)
[2019-04-21] MEDS ORDERED: nitroGLYCERIN 0.4mg SUBLingual tab SL PRN (09:55)
--- NOTE | 2019-04-21 10:45 | NUR ---
Discussed plan of care with Dr Sol. Discussed pt's wish to manage own blood sugar and Dr. Oviedo's note, received orders to treat per protocol. Also received orders to stop heparin gtt and start BID 5000unit heparin. Orders placed per .
[2019-04-21 11:00] VITALS: BP 133/69
[2019-04-21] MEDS: insulin glargine (Lantus) pen - multi-dose SQ SCH (11:28)
[2019-04-21] MEDS: insulin Lispro (HumaLOG) vial - multi-dose SQ SCH ×3 (11:30→18:56)
[2019-04-21] MEDS: spironolactone 25 MG tablet PO SCH (11:34)
[2019-04-21] MEDS: lisinopril 20mg tablet PO SCH (11:35)
[2019-04-21 12:56] LABS: HEMOGLOBIN A1C 7.8 % (4.5-6.2)
[2019-04-21 15:00] VITALS: BP 103/52
--- NOTE | 2019-04-21 17:00 | NUR ---
Pt's , Vciky, to nursing station, states patient complaint of sudden sharp pain of left upper leg. Assessed leg for warmth, redness, swelling. Cap refill/sensation intact. Palpated medial aspect of thigh, musculature appears tight/tender. Heat pack applied, pt admits relief of pain.
--- NOTE | 2019-04-21 18:15 | NUR ---
Problems reprioritized. Patient report given, questions answered & plan of care reviewed with LALITO Tolliver.
--- NOTE | 2019-04-21 18:22 | NUR ---
Patient in room PCU 3028b. I have received report from LALITO Nelson and had the opportunity to ask questions and assume patient care. Patient awake for bedside report, at bedside, and is stable at this time. Patient to self-manage insulin and orders reviewed. Will continue to monitor closely.
[2019-04-21 19:00] VITALS: BP 105/58
[2019-04-21] MEDS: carVEDilol 3.125mg tablet PO SCH (19:48)
[2019-04-21] MEDS: heparin, porcine 5000 units/ml vial SQ SCH (19:55)
--- NOTE | 2019-04-21 20:50 | NUR ---
1999 patient had B/P of 90/44 taken on right upper arm, HR 73. 40 mg/4 mL Lasix IV and 3.125mg Coreg held per protocol. Rechecked blood pressure at 2044 because patient stated he felt dizzy and was 109/54, HR 72. Educated patient that he still had the option to take Lasix and Coreg and he stated he was "concerned about his blood pressure dropping too low." was in room at bedside and she reported that this has happened with Coreg before and at one time all cardiac medication was discontinued and the issue with hypotension ceased. Will continue to monitor blood pressure closely.
[2019-04-21] MEDS ORDERED: pantoprazole 40mg Tablet.DR PO SCH (21:00)
--- NOTE | 2019-04-21 21:30 | NUR ---
Patient's blood sugar at 2100 was 85. Patient is managing own blood sugar and refused Lantus for the evening. Will recheck blood sugar at 0300 per patient request.
--- NOTE | 2019-04-21 22:00 | NUR ---
During patient medication administration, scanner on [facility]IE[facility] would not scan. Manually entered time of medication administration. Ensured 3 medication checks carried out correctly and safely.
[2019-04-21 23:00] VITALS: BP 110/58
[2019-04-22 05:24] LABS: BASOPHILS # (AUTO) 0.1 X10'3 (0-0.2); BASOPHILS % (AUTO) 0.9 % (0-1); EOSINOPHILS # (AUTO) 0.2 X10'3 (0-0.9); EOSINOPHILS % (AUTO) 2.9 % (0-6); HEMATOCRIT 39.7 % (42.0-52.0); HEMOGLOBIN 13.2 g/dl (14.0-17.9); LYMPHOCYTES # (AUTO) 1.6 X10'3 (1.1-4.8); LYMPHOCYTES % (AUTO) 26.5 % (21-51); MEAN CORPUSCULAR HEMOGLOBIN 29.8 PG (27.0-31.0); MEAN CORPUSCULAR HGB CONC 33.3 g/dL (33.0-36.5); MEAN CORPUSCULAR VOLUME 89.5 FL (78-98); MEAN PLATELET VOLUME 8.7 FL (7.4-10.4); MONOCYTES # (AUTO) 0.5 X10'3 (0-0.9); MONOCYTES % (AUTO) 9.1 % (2-12); NEUTROPHILS # (AUTO) 3.6 X10'3 (1.8-7.7); NEUTROPHILS % (AUTO) 60.6 % (42-75); PLATELET COUNT 208 X10'3 (140-440); RED BLOOD COUNT 4.44 X10'6 (4.70-6.10); RED CELL DISTRIBUTION WIDTH 16.1 % (11.5-14.5); WHITE BLOOD COUNT 5.9 X10'3 (4.5-11.0)
[2019-04-22 05:37] LABS: ALANINE AMINOTRANSFERASE 36 U/L (12-78); ALBUMIN/GLOBULIN RATIO 0.9 (1.1-1.5); ALKALINE PHOSPHATASE 68 IU/L (46-116); ANION GAP 8 (8-16); ASPARTATE AMINO TRANSFERASE 16 U/L (10-37); BILIRUBIN,TOTAL 0.3 MG/DL (0.1-1.0); BLOOD UREA NITROGEN 28 MG/DL (7-18); BUN/CREATININE RATIO 25.5 (5.4-32.0); CALCIUM 8.1 MG/DL (8.5-10.1); CHLORIDE 101 MMOL/L (99-107); CHOL/HDL RATIO 2.8 (0.00-4.99); CHOLESTEROL 145 MG/DL (0-200); GLUCOSE 125 MG/DL (70-104); HDL CHOLESTEROL 51 MG/DL (35-60); LDL CHOLESTEROL 78 MG/DL (50-100); MAGNESIUM 2.1 MG/DL (1.5-2.4); PHOSPHORUS 4.3 MG/DL (2.3-4.5); POTASSIUM 3.7 MMOL/L (3.5-5.1); SODIUM 135 MMOL/L (135-145); TOTAL CARBON DIOXIDE 26.3 MMOL/L (24-32); TOTAL PROTEIN 6.2 G/DL (6.4-8.2); TRIGLYCERIDES 84 MG/DL (20-135); eGFR 65 ML/MIN
[2019-04-22 06:00] VITALS: BP 110/56
--- NOTE | 2019-04-22 06:25 | NUR ---
Patient in room PCU 3028. I have received report from LALITO Tolliver and had the opportunity to ask questions and assume patient care.
--- NOTE | 2019-04-22 06:37 | NUR ---
Problems reprioritized. Patient report given, questions answered & plan of care reviewed with LALITO Lara.
[2019-04-22] MEDS ORDERED: aspirin 81mg tab.chew PO SCH (08:00)
[2019-04-22] MEDS ORDERED: vitamin D (cholecalciferol) 1,000 unit tablet PO SCH (08:00)
[2019-04-22] MEDS ORDERED: clopidogrel 75mg tablet PO SCH (08:00)
[2019-04-22] MEDS ORDERED: levoTHYROXINE 125mcg tablet PO SCH (08:00)
[2019-04-22] MEDS: furosemide 10 MG/1 ML 10ml inj IV SCH (08:01)
[2019-04-22] MEDS: spironolactone 25 MG tablet PO SCH (08:02)
[2019-04-22] MEDS: lisinopril 20mg tablet PO SCH (08:02)
[2019-04-22] MEDS: carVEDilol 3.125mg tablet PO SCH (08:02)
[2019-04-22] MEDS: heparin, porcine 5000 units/ml vial SQ SCH (08:03)
[2019-04-22] MEDS: insulin glargine (Lantus) pen - multi-dose SQ SCH (08:12)
[2019-04-22] MEDS: insulin Lispro (HumaLOG) vial - multi-dose SQ SCH (08:13)
[2019-04-22] MEDS ORDERED: COR3.125T PO (09:38)
[2019-04-22] MEDS ORDERED: SPIR25TA PO (09:38)
[2019-04-22] MEDS ORDERED: LISI-600 PO (09:38)
[2019-04-22] MEDS ORDERED: FURO-150 PO (10:02)
[2019-04-22 11:00] VITALS: BP 100/54
--- NOTE | 2019-04-22 12:10 | NUR ---
DC inst provided to pt & pt's . IV DC'd, tip intact. All belongings sent w/pt. WC to front lobby.
== END 2019-04-22 12:10 | disposition home health service (06) | DRG 280 ==
LOC: ER 17:18 → PCU 3S 04-21 00:13
PROVIDERS: ADMIT Internal Medicine; ATTEND Family Medicine
PROC: B32T1ZZ Computerized Tomography (CT Scan) of Left Pulmonary Artery using Low Osmolar Contrast (ICD-10-PCS; principal; 2019-04-20)
PROC: B3201ZZ Computerized Tomography (CT Scan) of Thoracic Aorta using Low Osmolar Contrast (ICD-10-PCS; 2019-04-20)
PROC: B32S1ZZ Computerized Tomography (CT Scan) of Right Pulmonary Artery using Low Osmolar Contrast (ICD-10-PCS; 2019-04-20)
DX: I21.A1 Myocardial infarction type 2 (principal); I50.23 Acute on chronic systolic (congestive) heart failure; I11.0 Hypertensive heart disease with heart failure; E03.9 Hypothyroidism, unspecified; E10.319 Type 1 diabetes mellitus with unspecified diabetic retinopathy without macular edema; E10.39 Type 1 diabetes mellitus with other diabetic ophthalmic complication; E10.51 Type 1 diabetes mellitus with diabetic peripheral angiopathy without gangrene; E10.65 Type 1 diabetes mellitus with hyperglycemia; E78.00 Pure hypercholesterolemia, unspecified; E78.5 Hyperlipidemia, unspecified; H54.8 Legal blindness, as defined in USA; I25.10 Atherosclerotic heart disease of native coronary artery without angina pectoris; K21.9 Gastro-esophageal reflux disease without esophagitis; Z79.02 Long term (current) use of antithrombotics/antiplatelets; Z79.82 Long term (current) use of aspirin; I25.2 Old myocardial infarction; Z79.899 Other long term (current) drug therapy; Z89.511 Acquired absence of right leg below knee; Z89.512 Acquired absence of left leg below knee; Z89.611 Acquired absence of right leg above knee; Z89.612 Acquired absence of left leg above knee; Z90.49 Acquired absence of other specified parts of digestive tract; Z95.1 Presence of aortocoronary bypass graft; Z88.1 Allergy status to other antibiotic agents
CPT/HCPCS: 36415; 71045; 71275; 80053; 80061; 81003; 82948; 83036; 83735; 83880; 84100; 84443; 84484; 85025; 85379; 85610; 85730; 93005; 93306; 96365; 96375; 99291; G0378; J1644; J1815; J1940; Q9967

== ENCOUNTER 2019-11-27 18:39 | Emergency (ER) | payer MEDICARE, BC ==
[~2019-11-27] VITALS: Ht 172.7 cm; Wt 84.1 kg
[~2019-11-27 18:39] MED LIST changes: +CARV6.252 PO; -FAMO40TA7 PO; +FURO-150 PO; +FURO40TA4 PO; -ISOS30TA6 PO; +LEVO100T9 PO; -LEVO125T PO; +LISI-600 PO; -MELA3TAB PO; -MULT-38 PO; -NITR0.3T SL; +NITR0.4T SL; -PANT40TA4 PO; -QUIN20TA18 PO; -RANO10003 PO; +ROSU40TA22 PO; +SPIR25TA5 PO; -VIT1TABL83 PO
[2019-11-27 19:15] LABS: BASOPHILS # (AUTO) 0.1 X10'3 (0-0.2); BASOPHILS % (AUTO) 0.5 % (0-1); EOSINOPHILS % (AUTO) 0.4 % (0-6); HEMATOCRIT 34.6 % (42.0-52.0); HEMOGLOBIN 12.1 g/dl (14.0-17.9); LYMPHOCYTES # (AUTO) 0.4 X10'3 (1.1-4.8); MEAN CORPUSCULAR HEMOGLOBIN 32.7 PG (27.0-31.0); MEAN CORPUSCULAR HGB CONC 34.9 g/dL (33.0-36.5); MEAN CORPUSCULAR VOLUME 93.8 FL (78-98); MEAN PLATELET VOLUME 8.4 FL (7.4-10.4); MONOCYTES # (AUTO) 0.6 X10'3 (0-0.9); MONOCYTES % (AUTO) 6.2 % (2-12); NEUTROPHILS # (AUTO) 8.6 X10'3 (1.8-7.7); NEUTROPHILS % (AUTO) 88.9 % (42-75); PLATELET COUNT 184 X10'3 (140-440); RED BLOOD COUNT 3.69 X10'6 (4.70-6.10); RED CELL DISTRIBUTION WIDTH 12.9 % (11.5-14.5); WHITE BLOOD COUNT 9.7 X10'3 (4.5-11.0)
[2019-11-27 19:29] LABS: ALANINE AMINOTRANSFERASE 33 U/L (12-78); ALBUMIN 3.8 G/DL (3.4-5.0); ALBUMIN/GLOBULIN RATIO 1.2 (1.1-1.5); ALKALINE PHOSPHATASE 71 IU/L (46-116); ANION GAP 9 (8-16); ASPARTATE AMINO TRANSFERASE 22 U/L (10-37); BILIRUBIN,TOTAL 0.5 MG/DL (0.1-1.0); BLOOD UREA NITROGEN 35 MG/DL (7-18); BUN/CREATININE RATIO 22.9 (5.4-32.0); CALCIUM 9.5 MG/DL (8.5-10.1); CHLORIDE 95 MMOL/L (99-107); CREATININE 1.53 MG/DL (0.60-1.10); GLUCOSE 314 MG/DL (70-104); POTASSIUM 5.2 MMOL/L (3.5-5.1); SODIUM 128 MMOL/L (135-145); TOTAL CARBON DIOXIDE 23.7 MMOL/L (24-32); eGFR 44 ML/MIN
[2019-11-27] MEDS ORDERED: ipratropium/albuterol 3ml nebule NEB ONE (22:40)
[2019-11-27] MEDS ORDERED: ALBU6.7H9 INH (22:44)
[2019-11-28 00:19] VITALS: BP 114/54
== END 2019-11-28 00:23 | disposition home or self-care (01) ==
LOC: ER 18:39
DX: J20.9 Acute bronchitis, unspecified (principal); E78.00 Pure hypercholesterolemia, unspecified; I25.2 Old myocardial infarction; E11.9 Type 2 diabetes mellitus without complications; I11.0 Hypertensive heart disease with heart failure; I50.9 Heart failure, unspecified; Z90.49 Acquired absence of other specified parts of digestive tract; Z95.1 Presence of aortocoronary bypass graft; Z89.612 Acquired absence of left leg above knee; Z89.611 Acquired absence of right leg above knee; Z88.1 Allergy status to other antibiotic agents; Z79.82 Long term (current) use of aspirin; Z79.899 Other long term (current) drug therapy
CPT/HCPCS: 36415; 71045; 80053; 82948; 84484; 85025; 93005; 94640; 94760; 99285